=== PATIENT | male | born 1980 | race African-American/Black ===

== ENCOUNTER → 2017-06-28 | Outpatient (CLI) | payer SELFPAY ==
[~2017-06-28] MED LIST: MORPHINE SULFATE 4 MG/ML INJ IV PUSH ONE
== END ==
LOC: HEDF 22:30
DX: T30.0 Burn of unspecified body region, unspecified degree (principal); X03.0XXA Exposure to flames in controlled fire, not in building or structure, initial encounter
CPT/HCPCS: A0431; A0436; J2270